=== PATIENT | male | born 1965 | race Caucasian/White ===

== ENCOUNTER 2018-06-30 13:09 | Inpatient (IN) | payer OTHER ==
[2018-06-30 13:51] VITALS: BMI 20.5
--- NOTE | 2018-06-30 16:51 | HP ---
COWS - Scale Resting Pulse: 0= SD 80 or Below Sweatin= Beads of Sweat on Face Restless Observation: 1= Difficult to Sit Still Pupil Size: 2= Moderately Dilated Bone or Joint Aches: 2= Severe Diffuse Aches Runny Nose/ Eye Tearin= None GI Upset > 30mins: 2= Nausea/Diarrhea Tremor Observation: 1= Tremor [place], Not Seen Yawning Observation: 0= None Anxiety or Irritability: 2=Irritable/Anxious Goose Flesh Skin: 0=Smooth Skin COWS Score: 13 CIWA Score - CIWA Score Nausea/Vomitin Muscle Tremors: 2 Anxiety: 2 Agitation: 1-Slight > Activity Paroxysmal Sweats: 2 Orientation: 0-Oriented Tacttile Disturbances: 2-Mild Itch/Numbness/Burn Auditory Disturbances: 0-None Visual Disturbances: 0-None Headache: 2-Mild CIWA-Ar Total Score: 13 Admission [facility] Chief Complaint: Patient presents with Heroin and ETOH withdrawal symptoms. Allergies/Adverse Reactions: Allergies Allergy/AdvReac Type Severity Reaction Status Date / Time No Known Allergies Allergy Verified 11/02/16 16:33 History of Present Illness: Patient presents with Heroin and ETOH withdrawal symptoms. Patient started sniffing heroin 2 years ago and sniffs up to 5 bags. Last time he sniffed was 2 days ago. He also drinks 2 pints of Liquor since age 8. Last drink was today. Reports he also smokes crack/cocaine and marijuana for 3-5 years. Smokes one bag of marijuana daily and 70 dollars a day of cocaine. Last time he smoked was yesterday. Denies seizures and overdose. Last detox was here at [facility] in 2016. Patient has history of depression, anxiety and bipolar disorder. Denies SI/HI and suicide attempts. Exam Limitations: No Limitations - Ebola screening Have you traveled outside of the country in the last 21 days: No Have you had contact with anyone from an Ebola affected area: No Have you been sick,other than usual withdrawal symptoms: No Do you have a fever: No - Review of Systems Constitutional: Chills, Night Sweats, Changes in sleep, Unintentional Wgt. Loss EENT: reports: Nose Congestion, Throat Pain Respiratory: reports: No Symptoms reported Cardiac: reports: No Symptoms Reported GI: reports: Diarrhea, Nausea, Poor Appetite, Poor Fluid Intake, Abdominal cramping : reports: No Symptoms Reported Musculoskeletal: reports: Back Pain, Joint Pain Integumentary: reports: Flushing, Sweating Neuro: reports: Headache, Tremors Endocrine: reports: Unexplained Weight Loss Hematology: reports: No Symptoms Reported Psychiatric: reports: Orientated x3, Anxious, Depressed Patient History - Patient Medical History Hx Anemia: No Hx Asthma: No Hx Chronic Obstructive Pulmonary Disease (COPD): No Hx Cancer: No Hx Cardiac Disorders: No Hx Congestive Heart Failure: No Hx Hypertension: Yes Hx Hypercholesterolemia: No Hx Pacemaker: No HX Cerebrovascular Accident: No Hx Seizures: No Hx Dementia: No Hx Diabetes: No Hx Gastrointestinal Disorders: No Hx Liver Disease: No Hx Genitourinary Disorders: No Hx Sexually Transmitted Disorders: No Hx Renal Disease (ESRD): No Hx Thyroid Disease: No Hx Human Immunodeficiency Virus (HIV): No Hx Hepatitis C: No Hx Depression: Yes Hx Suicide Attempt: No Hx Bipolar Disorder: Yes Hx Schizophrenia: No - Patient Surgical History Past Surgical History: No Hx Neurologic Surgery: No Hx Cataract Extraction: No Hx Cardiac Surgery: No Hx Lung Surgery: No Hx Breast Surgery: No Hx Breast Biopsy: No Hx Abdominal Surgery: No Hx Appendectomy: No Hx Cholecystectomy: No Hx Genitourinary Surgery: No Hx Orthopedic Surgery: No Anesthesia Reaction: No - PPD History Previous Implant?: Yes Documented Results: Negative w/o proof Implanted On Prior R Admission?: Yes Date: 11/04/16 PPD to be Administered?: Yes - Smoking Cessation Smoking history: Current some day smoker Have you smoked in the past 12 months: Yes Aproximately how many cigarettes per day: 4 Cigars Per Day: 0 Hx Chewing Tobacco Use: No Initiated information on smoking cessation: Yes 'Breaking Loose' booklet given: 06/30/18 - Substance & Tx. History Hx Alcohol Use: Yes Hx Substance Use: Yes Substance Use Type: Alcohol, Cocaine, Heroin, Marijuana Hx Substance Use Treatment: Yes - Substances Abused Heroin Route: Inhalation Frequency: 3-6 times per week Amount used: 2-3 bags Age of first use: 23 Date of Last Use: 06/28/18 Crack Route: Smoking Frequency: Daily Amount used: $50 Age of first use: 16 Date of Last Use: 06/29/18 alcoho Route: Oral Frequency: Daily Amount used: 2 pts rum Age of first use: 23 Date of Last Use: 06/29/18 Family Disease History - Family Disease History Family Disease History: Heart Disease: Mother (alive) Admission Physical Exam S - Vital Signs Vital Signs: Vital Signs - 24 hr 06/30/18 13:50 Temperature 98.3 F Pulse Rate 67 Respiratory 18 Rate Blood Pressure 145/90 - Physical General Appearance: Yes: Disheveled, Thin, Tremorous, Sweating, Anxious HEENTM: Yes: EOMI, Hearing grossly Normal, Normocephalic, Normal Voice, ANGELLA, Pharynx Normal Respiratory: Yes: Chest Non-Tender, Lungs Clear, Normal Breath Sounds, No Respiratory Distress, No Accessory Muscle Use Neck: Yes: No masses,lesions,Nodules, Supple, Trachea in good position Breast: Yes: Breast Exam Deferred Cardiology: Yes: Regular Rhythm, Regular Rate, S1, S2 Abdominal: Yes: Normal Bowel Sounds, Non Tender, Flat, Soft Genitourinary: Yes: Within Normal Limits Back: Yes: Muscle Spasm Musculoskeletal: Yes: full range of Motion, Gait Steady, Back pain, Muscle Pain Extremities: Yes: Normal Inspection, Normal Range of Motion, Non-Tender, Tremors Neurological: Yes: weed eradicator II-XII NML intact, Fully Oriented, Alert, Motor Strength 5/5, Depressed Affect Integumentary: Yes: Normal Color, Warm, Moist Lymphatic: Yes: Within Normal Limits - Diagnostic (1) Opioid dependence with withdrawal Current Visit: Yes Status: Acute (2) Alcohol dependence with uncomplicated withdrawal Current Visit: Yes Status: Acute (3) Cocaine dependence Current Visit: Yes Status: Chronic Qualifiers: Substance use status: uncomplicated Qualified Code(s): F14.20 - Cocaine dependence, uncomplicated (4) Nicotine dependence Current Visit: Yes Status: Chronic Qualifiers: Nicotine product type: cigarettes Substance use status: uncomplicated Qualified Code(s): F17.210 - Nicotine dependence, cigarettes, uncomplicated (5) Bipolar disorder Current Visit: Yes Status: Chronic Qualifiers: Current episode severity: unspecified Comment: By history. (6) Hypertension Current Visit: Yes Status: Chronic Qualifiers: Hypertension type: essential hypertension Qualified Code(s): I10 - Essential (primary) hypertension Cleared for Admission [facility] - Detox or Rehab S Level of Care: Medically Managed Detox Regimen/Protocol: Methadone/Librium S Breath Alcohol Content Breath Alcohol Content: 0 Urine Drug Screen - Results Drug Screen Negative: No Urine Drug Screen Results: THC-Marijuana, CHERRY-Cocaine, OPI-Opiates
[2018-06-30] MEDS ORDERED: MAGNESIUM CITRATE 300 ML BOTTLE PO PRN (17:04)
[2018-06-30] MEDS ORDERED: P-EPHED 60MG/TRIPROLIDI 2.5MG TABLET PO PRN (17:04)
[2018-06-30] MEDS ORDERED: ACETAMINOPHEN 325 MG TABLET (FP) PO PRN (17:04)
[2018-06-30] MEDS ORDERED: guaiFENesin/D-METHORPHAN HB 10 ML UNIT-DOSE CUPS PO PRN (17:04)
[2018-06-30] MEDS ORDERED: MAGNESIUM HYDROX 2400MG/30ML ORAL SUSPENSION 30 ML CUP PO PRN (17:04)
[2018-06-30] MEDS ORDERED: MENTHOL/PHENOL 1 EACH UD MM PRN (17:04)
[2018-06-30] MEDS ORDERED: IBUPROFEN 400 MG TABLET (FP) PO PRN (17:04)
[2018-06-30] MEDS ORDERED: LOPERAMIDE HCL 2 MG CAPSULE PO PRN (17:04)
[2018-06-30] MEDS ORDERED: NICOTINE POLACRILEX 2 MG GUM BC PRN (17:04)
[2018-06-30] MEDS ORDERED: chlordiazePOXIDE HCL 25 MG CAPSULE PO PRN (17:06)
[2018-06-30] MEDS ORDERED: METHADONE HCL 10 MG TABLET (FOR DETOX USE ONLY) PO ONE ×2 (17:30→23:00)
[2018-06-30] MEDS ORDERED: chlordiazePOXIDE HCL 25 MG CAPSULE PO ONE (17:30)
[2018-06-30] MEDS: THIAMINE HCL 100 MG TABLET (FP) PO SCH (22:28)
[2018-06-30] MEDS: chlordiazePOXIDE HCL 25 MG CAPSULE PO SCH (22:28)
[2018-07-01 02:14] LABS: URINE APPEARANCE CLEAR; URINE BILIRUBIN NEGATIVE (<2.0 mg/dL); URINE COLOR YELLOW; URINE GLUCOSE (UA) NEGATIVE (NEGATIVE); URINE KETONE 1+ (NEGATIVE); URINE LEUK ESTERASE NEGATIVE (NEGATIVE); URINE NITRITE NEGATIVE (NEGATIVE); URINE PROTEIN NEGATIVE (NEGATIVE); URINE UROBILINOGEN NEGATIVE mg/dL (0.2-1.0)
[2018-07-01 02:28] LABS: URINE MUCUS RARE
[2018-07-01] MEDS: hydrOXYzine PAMOATE 50 MG CAPSULE (FP) PO PRN (02:37)
[2018-07-01] MEDS: chlordiazePOXIDE HCL 25 MG CAPSULE PO SCH ×4 (06:07→22:15)
[2018-07-01] MEDS ORDERED: METHADONE HCL 10 MG TABLET (FOR DETOX USE ONLY) PO SCH (10:00)
[2018-07-01] MEDS: PRENATAL VITAMINS W/ FOLIC ACID TABLET (FP) PO SCH (10:47)
[2018-07-01] MEDS: NICOTINE 21 MG/24 HOURS TOPICAL PATCH TD SCH (10:52)
[2018-07-01 10:58] LABS: HEMATOCRIT 41.3 % (35.4-49); MCH 33.7 pg (25.7-33.7); MEAN CELL VOLUME 99.2 fl (80-96); MEAN PLT VOLUME 10.3 fl (7.5-11.1); PLATELET COUNT 130 K/MM3 (134-434); RBC 4.16 M/mm3 (4.00-5.60); RDW 12.3 % (11.9-15.9); WHITE BLOOD COUNT 4.9 K/mm3 (4.0-10.0)
[2018-07-01 11:20] LABS: ALBUMIN 3.7 g/dl (3.4-5.0); ANION GAP 7 (8-16); BLOOD UREA NITROGEN 19 mg/dL (7-18); CHLORIDE 105 mmol/L (98-107); CO2 31 mmol/L (21-32); GLUCOSE,RANDOM 87 mg/dL (74-106); POTASSIUM 4.4 mmol/L (3.5-5.1); SGOT/AST 38 U/L (15-37); SGPT/ALT 34 U/L (12-78); SODIUM 143 mmol/L (136-145)
[2018-07-01 11:22] LABS: ALK PHOS 82 U/L (45-117); BILIRUBIN,TOTAL 1.1 mg/dL (0.2-1.0); CALCIUM 9.2 mg/dL (8.5-10.1); CREATININE 1.3 mg/dL (0.7-1.3); TOT PROT 6.7 g/dl (6.4-8.2)
--- NOTE | 2018-07-01 13:35 | PN ---
S CIWA - CIWA Score Nausea/Vomitin Muscle Tremors: 3 Anxiety: 3 Agitation: 3 Paroxysmal Sweats: 1-Minimal Palms Moist Orientation: 0-Oriented Tacttile Disturbances: 1-Very Mild Itch/Numbness Auditory Disturbances: 1-Very Mild Visual Disturbances: 0-None Headache: 2-Mild CIWA-Ar Total Score: 17 BHS COWS - Scale Resting Pulse: 0= [place] 80 or Below Sweatin= Chills/Flushing Restless Observation: 3= Extraneous Movement Pupil Size: 1= Pupils >than Normal Bone or Joint Aches: 2= Severe Diffuse Aches Runny Nose/ Eye Tearin= Runny Nose/Eyes GI Upset > 30mins: 2= Nausea/Diarrhea Tremor Observation of Outstretched Hands: 2= Slight Tremor Visible Yawning Observation: 0= None Anxiety or Irritability: 2=Irritable/Anxious Goose Flesh Skin: 0=Smooth Skin COWS Score: 15 BHS Progress Note (SOAP) Subjective: alert,irritable,anxious,interrupted sleep,tremor pain in the body and back Objective: 07/01/18 13:33 Vital Signs Temperature 97.5 F L 07/01/18 13:17 Pulse Rate 64 07/01/18 13:17 Respiratory Rate 18 07/01/18 13:17 Blood Pressure 126/79 07/01/18 13:17 O2 Sat by Pulse Oximetry (%) ekg nsr,82/min qt/qtc 396/462 no chest pain,no sob,no dizziness Laboratory Last Values WBC 4.9 K/mm3 (4.0-10.0) 07/01/18 06:00 RBC 4.16 M/mm3 (4.00-5.60) 07/01/18 06:00 Hgb 14.0 GM/dL (11.7-16.9) 07/01/18 06:00 Hct 41.3 % (35.4-49) 07/01/18 06:00 MCV 99.2 fl (80-96) H 07/01/18 06:00 MCH 33.7 pg (25.7-33.7) 07/01/18 06:00 MCHC 34.0 g/dl (32.0-35.9) 07/01/18 06:00 RDW 12.3 % (11.9-15.9) 07/01/18 06:00 Plt Count 130 K/MM3 (134-434) L 07/01/18 06:00 MPV 10.3 fl (7.5-11.1) 07/01/18 06:00 Sodium 143 mmol/L (136-145) 07/01/18 06:00 Potassium 4.4 mmol/L (3.5-5.1) 07/01/18 06:00 Chloride 105 mmol/L (98-107) 07/01/18 06:00 Carbon Dioxide 31 mmol/L (21-32) 07/01/18 06:00 Anion Gap 7 (8-16) L 07/01/18 06:00 BUN 19 mg/dL (7-18) H 07/01/18 06:00 Creatinine 1.3 mg/dL (0.7-1.3) 07/01/18 06:00 Creat Clearance w eGFR 57.31 (>60) 07/01/18 06:00 Random Glucose 87 mg/dL (74-106) 07/01/18 06:00 Calcium 9.2 mg/dL (8.5-10.1) 07/01/18 06:00 Total Bilirubin 1.1 mg/dL (0.2-1.0) H 07/01/18 06:00 AST 38 U/L (15-37) H D 07/01/18 06:00 ALT 34 U/L (12-78) D 07/01/18 06:00 Alkaline Phosphatase 82 U/L (45-117) 07/01/18 06:00 Total Protein 6.7 g/dl (6.4-8.2) 07/01/18 06:00 Albumin 3.7 g/dl (3.4-5.0) 07/01/18 06:00 Urine Color Yellow 06/30/18 23:19 Urine Appearance Clear 06/30/18 23:19 Urine pH 6.0 (5.0-8.0) 06/30/18 23:19 Ur Specific [place] 1.021 (1.001-1.035) 06/30/18 23:19 Urine Protein Negative (NEGATIVE) 06/30/18 23:19 Urine Glucose (UA) Negative (NEGATIVE) 06/30/18 23:19 Urine Ketones 1+ (NEGATIVE) H 06/30/18 23:19 Urine Blood 1+ (NEGATIVE) H 06/30/18 23:19 Urine Nitrite Negative (NEGATIVE) 06/30/18 23:19 Urine Bilirubin Negative (<2.0 mg/dL) 06/30/18 23:19 Urine Urobilinogen Negative mg/dL (0.2-1.0) 06/30/18 23:19 Ur Leukocyte Esterase Negative (NEGATIVE) 06/30/18 23:19 Urine WBC (Auto) 1 /hpf (3-5) 06/30/18 23:19 Urine RBC (Auto) 9 /hpf (0-3) 06/30/18 23:19 Urine Mucus Rare 06/30/18 23:19 HIV 1&2 Antibody Screen Negative 06/30/18 15:00 HIV P24 Antigen Negative 06/30/18 15:00 07/01/18 13:35 rpr pending Assessment: 07/01/18 13:35 withdrawal symptom Plan: continue detox,encourage oral fluid,repeat ua
--- NOTE | 2018-07-01 16:30 | EKG ---
Test Reason : Blood Pressure : / mmHG Vent. Rate : 082 BPM Atrial Rate : 082 BPM P-R Int : 142 ms QRS Dur : 086 ms QT Int : 396 ms P-R-T Axes : 072 072 056 degrees QTc Int : 462 ms NORMAL SINUS RHYTHM NONSPECIFIC ST ABNORMALITY ABNORMAL ECG NO PREVIOUS ECGS AVAILABLE Confirmed by Presley Nowak MD ([id number]) on 07/01/2018 4:29:13 PM Referred By: Confirmed By:Presley Nowak MD
[2018-07-01] MEDS ORDERED: PNEUMOCOCCAL 23 VACCINE 0.5 ML VIAL IM ONE (17:00)
[2018-07-01] MEDS: MAG HYDROX/AL HYDROX/SIMETH 30 ML UNIT-DOSE CUP PO PRN (17:47)
--- NOTE | 2018-07-01 18:50 | PN ---
[facility] Progress Note Note: Vital Signs Temperature 98.1 F 07/01/18 18:09 Pulse Rate 91 H 07/01/18 18:09 Respiratory Rate 16 07/01/18 18:09 Blood Pressure 144/74 07/01/18 18:09 O2 Sat by Pulse Oximetry (%) Laboratory Last Values WBC 4.9 K/mm3 (4.0-10.0) 07/01/18 06:00 RBC 4.16 M/mm3 (4.00-5.60) 07/01/18 06:00 Hgb 14.0 GM/dL (11.7-16.9) 07/01/18 06:00 Hct 41.3 % (35.4-49) 07/01/18 06:00 MCV 99.2 fl (80-96) H 07/01/18 06:00 MCH 33.7 pg (25.7-33.7) 07/01/18 06:00 MCHC 34.0 g/dl (32.0-35.9) 07/01/18 06:00 RDW 12.3 % (11.9-15.9) 07/01/18 06:00 Plt Count 130 K/MM3 (134-434) L 07/01/18 06:00 MPV 10.3 fl (7.5-11.1) 07/01/18 06:00 Sodium 143 mmol/L (136-145) 07/01/18 06:00 Potassium 4.4 mmol/L (3.5-5.1) 07/01/18 06:00 Chloride 105 mmol/L (98-107) 07/01/18 06:00 Carbon Dioxide 31 mmol/L (21-32) 07/01/18 06:00 Anion Gap 7 (8-16) L 07/01/18 06:00 BUN 19 mg/dL (7-18) H 07/01/18 06:00 Creatinine 1.3 mg/dL (0.7-1.3) 07/01/18 06:00 Creat Clearance w eGFR 57.31 (>60) 07/01/18 06:00 Random Glucose 87 mg/dL (74-106) 07/01/18 06:00 Calcium 9.2 mg/dL (8.5-10.1) 07/01/18 06:00 Total Bilirubin 1.1 mg/dL (0.2-1.0) H 07/01/18 06:00 AST 38 U/L (15-37) H D 07/01/18 06:00 ALT 34 U/L (12-78) D 07/01/18 06:00 Alkaline Phosphatase 82 U/L (45-117) 07/01/18 06:00 Total Protein 6.7 g/dl (6.4-8.2) 07/01/18 06:00 Albumin 3.7 g/dl (3.4-5.0) 07/01/18 06:00 Urine Color Yellow 06/30/18 23:19 Urine Appearance Clear 06/30/18 23:19 Urine pH 6.0 (5.0-8.0) 06/30/18 23:19 Ur Specific [place] 1.021 (1.001-1.035) 06/30/18 23:19 Urine Protein Negative (NEGATIVE) 06/30/18 23:19 Urine Glucose (UA) Negative (NEGATIVE) 06/30/18 23: Urine Ketones 1+ (NEGATIVE) H 06/30/18 23:19 Urine Blood 1+ (NEGATIVE) H 06/30/18 23:19 Urine Nitrite Negative (NEGATIVE) 06/30/18 23:19 Urine Bilirubin Negative (<2.0 mg/dL) 06/30/18 23: Urine Urobilinogen Negative mg/dL (0.2-1.0) 06/30/18 23:19 Ur Leukocyte Esterase Negative (NEGATIVE) 06/30/18 23:19 Urine WBC (Auto) 1 /hpf (3-5) 06/30/18 23:19 Urine RBC (Auto) 9 /hpf (0-3) 06/30/18 23:19 Urine Mucus Rare 06/30/18 23:19 RPR Titer Nonreactive (NONREACTIVE) 07/01/18 06:00 HIV 1&2 Antibody Screen Negative 06/30/18 15:00 HIV P24 Antigen Negative 06/30/18 15:00 Patient c/o of itchy rash and plantar surface of both feet top tinactin cream continue to monitor
[2018-07-01] MEDS: THIAMINE HCL 100 MG TABLET (FP) PO SCH (22:15)
[2018-07-01] MEDS: TOLNAFTATE 1% CREAM 15 GM TUBE TP SCH (22:15)
[2018-07-01] MEDS: MELATONIN 5 MG TABLETS PO PRN (22:16)
[2018-07-02] MEDS: chlordiazePOXIDE HCL 25 MG CAPSULE PO SCH ×3 (05:27→17:55)
[2018-07-02] MEDS: METHADONE HCL 5 MG TABLET (FOR DETOX USE ONLY) PO SCH (10:27)
[2018-07-02] MEDS: TOLNAFTATE 1% CREAM 15 GM TUBE TP SCH ×2 (10:27→22:03)
[2018-07-02] MEDS: PRENATAL VITAMINS W/ FOLIC ACID TABLET (FP) PO SCH (10:27)
[2018-07-02] MEDS: NICOTINE 21 MG/24 HOURS TOPICAL PATCH TD SCH (10:27)
[2018-07-02] MEDS ORDERED: CYCLOBENZAPRINE HCL 10 MG TABLET (FP) PO PRN (12:18)
--- NOTE | 2018-07-02 12:37 | PN ---
S CIWA - CIWA Score Nausea/Vomitin Muscle Tremors: 3 Anxiety: 2 Agitation: 2 Paroxysmal Sweats: 1-Minimal Palms Moist Orientation: 0-Oriented Tacttile Disturbances: 1-Very Mild Itch/Numbness Auditory Disturbances: 1-Very Mild Visual Disturbances: 0-None Headache: 2-Mild CIWA-Ar Total Score: 15 BHS COWS - Scale Resting Pulse: 0= [place] 80 or Below Sweatin= Chills/Flushing Restless Observation: 3= Extraneous Movement Pupil Size: 1= Pupils >than Normal Bone or Joint Aches: 2= Severe Diffuse Aches Runny Nose/ Eye Tearin= Nasal Congestion GI Upset > 30mins: 2= Nausea/Diarrhea Tremor Observation of Outstretched Hands: 2= Slight Tremor Visible Yawning Observation: 1= 1-2x During Session Anxiety or Irritability: 2=Irritable/Anxious Goose Flesh Skin: 0=Smooth Skin COWS Score: 15 BHS Progress Note (SOAP) Subjective: alert,irritable,anxious,interrupted sleep,pain in the body and back,pain in left lower abdomen Objective: 07/02/18 12:35 Vital Signs Temperature 97.3 F L 07/02/18 09:27 Pulse Rate 60 07/02/18 09:27 Respiratory Rate 18 07/02/18 09:27 Blood Pressure 129/83 07/02/18 09:27 O2 Sat by Pulse Oximetry (%) 07/02/18 12:35 Laboratory Last Values WBC 4.9 K/mm3 (4.0-10.0) 07/01/18 06:00 RBC 4.16 M/mm3 (4.00-5.60) 07/01/18 06:00 Hgb 14.0 GM/dL (11.7-16.9) 07/01/18 06:00 Hct 41.3 % (35.4-49) 07/01/18 06:00 MCV 99.2 fl (80-96) H 07/01/18 06:00 MCH 33.7 pg (25.7-33.7) 07/01/18 06:00 MCHC 34.0 g/dl (32.0-35.9) 07/01/18 06:00 RDW 12.3 % (11.9-15.9) 07/01/18 06:00 Plt Count 130 K/MM3 (134-434) L 07/01/18 06:00 MPV 10.3 fl (7.5-11.1) 07/01/18 06:00 Sodium 143 mmol/L (136-145) 07/01/18 06:00 Potassium 4.4 mmol/L (3.5-5.1) 07/01/18 06:00 Chloride 105 mmol/L (98-107) 07/01/18 06:00 Carbon Dioxide 31 mmol/L (21-32) 07/01/18 06:00 Anion Gap 7 (8-16) L 07/01/18 06:00 BUN 19 mg/dL (7-18) H 07/01/18 06:00 Creatinine 1.3 mg/dL (0.7-1.3) 07/01/18 06:00 Creat Clearance w eGFR 57.31 (>60) 07/01/18 06:00 Random Glucose 87 mg/dL (74-106) 07/01/18 06:00 Calcium 9.2 mg/dL (8.5-10.1) 07/01/18 06:00 Total Bilirubin 1.1 mg/dL (0.2-1.0) H 07/01/18 06:00 AST 38 U/L (15-37) H D 07/01/18 06:00 ALT 34 U/L (12-78) D 07/01/18 06:00 Alkaline Phosphatase 82 U/L (45-117) 07/01/18 06:00 Total Protein 6.7 g/dl (6.4-8.2) 07/01/18 06:00 Albumin 3.7 g/dl (3.4-5.0) 07/01/18 06:00 Urine Color Yellow 06/30/18 23:19 Urine Appearance Clear 06/30/18 23:19 Urine pH 6.0 (5.0-8.0) 06/30/18 23:19 Ur Specific [place] 1.021 (1.001-1.035) 06/30/18 23:19 Urine Protein Negative (NEGATIVE) 06/30/18 23:19 Urine Glucose (UA) Negative (NEGATIVE) 06/30/18 23:19 Urine Ketones 1+ (NEGATIVE) H 06/30/18 23:19 Urine Blood 1+ (NEGATIVE) H 06/30/18 23:19 Urine Nitrite Negative (NEGATIVE) 06/30/18 23:19 Urine Bilirubin Negative (<2.0 mg/dL) 06/30/18 23:19 Urine Urobilinogen Negative mg/dL (0.2-1.0) 06/30/18 23:19 Ur Leukocyte Esterase Negative (NEGATIVE) 06/30/18 23:19 Urine WBC (Auto) 1 /hpf (3-5) 06/30/18 23:19 Urine RBC (Auto) 9 /hpf (0-3) 06/30/18 23:19 Urine Mucus Rare 06/30/18 23:19 RPR Titer Nonreactive (NONREACTIVE) 07/01/18 06:00 HIV 1&2 Antibody Screen Negative 06/30/18 15:00 HIV P24 Antigen Negative 06/30/18 15:00 Assessment: 07/02/18 12:36 withdrawal symptom Plan: continue detox
[2018-07-02] MEDS: MAG HYDROX/AL HYDROX/SIMETH 30 ML UNIT-DOSE CUP PO PRN (17:16)
--- NOTE | 2018-07-02 17:16 | PN ---
S Progress Note Note: Vital Signs Temperature 97.3 F L 07/02/18 14:49 Pulse Rate 68 07/02/18 14:49 Respiratory Rate 18 07/02/18 14:49 Blood Pressure 143/82 07/02/18 14:49 O2 Sat by Pulse Oximetry (%) nausea and vomiting zofran prn fluids as tolerated continue monitor
[2018-07-02] MEDS: ONDANSETRON *ODT* 4 MG TABLET SL PRN (18:03)
[2018-07-02] MEDS: chlordiazePOXIDE 5 MG CAPSULE PO SCH (22:01)
[2018-07-02] MEDS: cloNIDine HCL 0.1 MG TABLET PO SCH (22:02)
[2018-07-02] MEDS: THIAMINE HCL 100 MG TABLET (FP) PO SCH (22:04)
[2018-07-03] MEDS: MELATONIN 5 MG TABLETS PO PRN ×2 (01:31→22:12)
[2018-07-03] MEDS: chlordiazePOXIDE 5 MG CAPSULE PO SCH ×3 (05:24→17:51)
[2018-07-03] MEDS: PRENATAL VITAMINS W/ FOLIC ACID TABLET (FP) PO SCH (11:05)
[2018-07-03] MEDS: cloNIDine HCL 0.1 MG TABLET PO SCH ×2 (11:05→22:10)
[2018-07-03] MEDS: METHADONE HCL 5 MG TABLET (FOR DETOX USE ONLY) PO SCH (11:05)
[2018-07-03] MEDS: NICOTINE 21 MG/24 HOURS TOPICAL PATCH TD SCH (11:10)
[2018-07-03] MEDS: TOLNAFTATE 1% CREAM 15 GM TUBE TP SCH ×2 (11:10→22:46)
--- NOTE | 2018-07-03 11:44 | PN ---
[facility] Progress Note (SOAP) Subjective: alert,irritable,anxious,interrupted sleep,pain in the body Objective: 07/03/18 11:43 Vital Signs Temperature 96.8 F L 07/03/18 10:31 Pulse Rate 62 07/03/18 10:31 Respiratory Rate 17 07/03/18 10:31 Blood Pressure 129/85 07/03/18 10:31 O2 Sat by Pulse Oximetry (%) Assessment: 07/03/18 11:43 withdrawal symptom Plan: continue detox
[2018-07-03] MEDS: chlordiazePOXIDE HCL 10 MG CAPSULE PO SCH (22:10)
[2018-07-03] MEDS: THIAMINE HCL 100 MG TABLET (FP) PO SCH (22:10)
[2018-07-04] MEDS: chlordiazePOXIDE HCL 10 MG CAPSULE PO SCH ×3 (05:56→18:00)
[2018-07-04] MEDS ORDERED: METHADONE HCL 10 MG TABLET (FOR DETOX USE ONLY) PO SCH (10:00)
[2018-07-04] MEDS: cloNIDine HCL 0.1 MG TABLET PO SCH ×2 (10:39→22:09)
[2018-07-04] MEDS: TOLNAFTATE 1% CREAM 15 GM TUBE TP SCH ×2 (10:39→22:12)
[2018-07-04] MEDS: NICOTINE 21 MG/24 HOURS TOPICAL PATCH TD SCH (10:39)
[2018-07-04] MEDS: PRENATAL VITAMINS W/ FOLIC ACID TABLET (FP) PO SCH (10:39)
--- NOTE | 2018-07-04 10:45 | PN ---
S Progress Note (SOAP) Subjective: alert,irritable,anxious,interrupted sleep Objective: 07/04/18 10:44 Vital Signs Temperature 98.1 F 07/04/18 09:21 Pulse Rate 62 07/04/18 09:21 Respiratory Rate 18 07/04/18 09:21 Blood Pressure 124/61 07/04/18 09:21 O2 Sat by Pulse Oximetry (%) Assessment: 07/04/18 10:45 withdrawal symptom Plan: continue detox,discharge in am
[2018-07-04] MEDS: ONDANSETRON *ODT* 4 MG TABLET SL PRN (22:09)
[2018-07-04] MEDS: hydrOXYzine PAMOATE 50 MG CAPSULE (FP) PO PRN (22:09)
[2018-07-04] MEDS: THIAMINE HCL 100 MG TABLET (FP) PO SCH (22:10)
[2018-07-05] MEDS ORDERED: METHADONE HCL 5 MG TABLET (FOR DETOX USE ONLY) PO SCH (06:00)
[2018-07-05 06:26] VITALS: TEMP 97.2
[2018-07-05 10:28] VITALS: BP 120/84; PULSE 67
[2018-07-05] MEDS: cloNIDine HCL 0.1 MG TABLET PO SCH (10:35)
[2018-07-05] MEDS: NICOTINE 21 MG/24 HOURS TOPICAL PATCH TD SCH (10:35)
[2018-07-05] MEDS: PRENATAL VITAMINS W/ FOLIC ACID TABLET (FP) PO SCH (10:36)
[2018-07-05] MEDS: TOLNAFTATE 1% CREAM 15 GM TUBE TP SCH (10:36)
== END 2018-07-05 13:20 | disposition home or self-care (01) | DRG 773 ==
LOC: YASAS 13:09 → Y6N 16:27
PROVIDERS: ADMIT Surgery; ATTEND Surgery
PROC: HZ2ZZZZ Detoxification Services for Substance Abuse Treatment (ICD-10-PCS; principal; 2018-06-30)
DX: F11.23 Opioid dependence with withdrawal (principal); F10.230 Alcohol dependence with withdrawal, uncomplicated; F14.20 Cocaine dependence, uncomplicated; F17.210 Nicotine dependence, cigarettes, uncomplicated; F31.9 Bipolar disorder, unspecified; I10 Essential (primary) hypertension; L29.9 Pruritus, unspecified; R21 Rash and other nonspecific skin eruption
CPT/HCPCS: 36415; 80053; 81003; 81015; 85027; 86593; 87389; 90732; 93005; 93010; G0009; J0735; Q0162